=== PATIENT | male | born 1990 | race Caucasian/White ===

== ENCOUNTER 2017-11-22 12:06 | Emergency (ER) | payer OTHER ==
[2017-11-22] MEDS ORDERED: Albuterol/Ipratropium 3.0-0.5 MG/3 ML Neb Soln NEB ONE (12:24)
[2017-11-22 13:09] LABS: CHLORIDE,CL 107 mmol/L (98-110); SODIUM,NA 139 mmol/L (136-146)
[2017-11-22] MEDS ORDERED: Levofloxacin 500 MG Tab PO ONE (14:41)
--- NOTE | 2017-11-22 14:58 | CR ---
EXAM DATE: 11/22/17 PATIENT'S AGE: 27 Patient: NURY ARGUELLO Facility: [place], [place] Site . Site : 1990 Study: XRay Chest [id number]/27/2017 1:21:47 PM Ordering Physician: Doctor Ivey Final Report: INDICATION: Cough TECHNIQUE: Chest 2 views COMPARISON: None FINDINGS: CARDIOVASCULATURE AND MEDIASTINUM: Heart size and vasculature are normal in caliber and appearance. LUNGS AND PLEURAL SPACES: Infiltrate is present. The basilar segment of the right upper lobe. Remainder of the lungs and pleural spaces are clear. BONES AND SOFT TISSUES: No significant findings. IMPRESSION: Right upper lobe pneumonia. Dictated by Yoel Rodriguez MD @ 11/22/2017 1:41:52 PM Dictated by: Yoel Rodriguez MD @ 11/22/2017 13:42:00 (Electronic Signature) Report Signed by Proxy. [email or web address]
--- NOTE | 2017-11-22 15:09 | EDM.PDOC ---
ED HPI GENERAL MEDICAL PROBLEM - General Chief Complaint: Respiratory Problem Stated Complaint: COUGH Time Seen by Provider: 11/22/17 13:06 Source of Information: Reports: Patient History Limitations: Reports: No Limitations - History of Present Illness INITIAL COMMENTS - FREE TEXT/NARRATIVE: History of present illness: [27-year-old male comes in complaining of shortness of breath. Patient indicates he thinks has pneumonia. Patient has had a history of pneumonia and indicates it feels the same way.] Review of systems: As per history of present illness and below otherwise all systems reviewed and negative. Past medical history: As per history of present illness and as reviewed below otherwise noncontributory. Surgical history: As per history of present illness and as reviewed below otherwise noncontributory. Social history: No reported history of drug or alcohol abuse. Family history: As per history of present illness and as reviewed below otherwise noncontributory. Physical exam: HEENT: Atraumatic, normocephalic, pupils reactive, negative for conjunctival pallor or scleral icterus, mucous membranes moist, throat clear, neck supple, nontender, trachea midline. Lungs: Coarse breath sounds in bilateral upper apices otherwise breath sounds equal bilaterally, chest nontender. Heart: S1S2, regular, negative for clicks, rubs, or JVD. Abdomen: Soft, nondistended, nontender. Negative for masses or hepatosplenomegaly. Negative for costovertebral tenderness. Pelvis: Stable nontender. Genitourinary: Deferred. Rectal: Deferred. Extremities: Atraumatic, negative for cords or calf pain. Neurovascular unremarkable. Neuro: Awake, alert, oriented. Cranial nerves II through XII unremarkable. Cerebellum unremarkable. Motor and sensory unremarkable throughout. Exam nonfocal. Diagnostics: [CBC, CMP, chest x-ray] Therapeutics: [DuraNeb, Levaquin] Impression: [Right upper lobe pneumonia] Plan: [Levaquin, Medrol Dosepak] Definitive disposition and diagnosis as appropriate pending reevaluation and review of above. joint Pain Score (Numeric/FACES): 3 - Related Data Allergies Allergy/AdvReac Type Severity Reaction Status Date / Time No Known Allergies Allergy Verified 11/22/17 12:18 Home Meds: Home Meds Albuterol Sulfate [Proair Hfa] 2 puff IH Q6HR #1 hfa.aer.ad 11/22/17 [Rx] Inhaler, Assist Devices [Space Chamber Plus] 1 each ASDIRECTED #1 spacer [Rx] Levofloxacin [Levaquin] 500 mg PO Q24H 7 Days #7 tablet 11/22/17 [Rx] methylPREDNISolone [Medrol] 4 mg PO DAILY #21 tab.ds.pk 11/22/17 [Rx] Past Medical History - Past Health History Medical/Surgical History: Denies Medical/Surgical History - Infectious Disease History Infectious Disease History: Reports: Chicken Pox Social & Family History - Family History Family Medical History: Noncontributory - Tobacco Use Smoking Status *Q: Never Smoker - Caffeine Use Caffeine Use: Reports: Tea - Recreational Drug Use Recreational Drug Use: No ED ROS GENERAL - Review of Systems Review Of Systems: See Below (See history of present illness) ED EXAM, GENERAL - Physical Exam Exam: See Below (See history of present illness) Course - Vital Signs Last Recorded V/S: Last Vital Signs Temp 37.1 C 11/22/17 12:15 Pulse 76 11/22/17 12:15 Resp 18 11/22/17 12:15 BP 129/75 11/22/17 12:15 Pulse Ox 95 11/22/17 12:15 - Orders/Labs/Meds Orders: Active Orders 24 hr Category Date Time Status RT Aerosol Therapy [RC] ASDIRECTED Care 11/22/17 12:24 Active Labs: Laboratory Tests 11/22/17 11/22/17 Range/Units 12:34 12:34 WBC 7.01 (4.0-11.0) K/uL RBC 5.01 (4.50-5.90) M/uL Hgb 14.7 (13.0-17.0) g/dL Hct 43.0 (38.0-50.0) % MCV 85.8 (80.0-98.0) fL MCH 29.3 (27.0-32.0) pg MCHC 34.2 (31.0-37.0) g/dL RDW Std Deviation 42.3 (28.0-62.0) fl RDW Coeff of Maggi 14 (11.0-15.0) % Plt Count 223 (150-400) K/uL MPV 9.60 (7.40-12.00) fL Neut % (Auto) 60.0 (48.0-80.0) % Lymph % (Auto) 27.4 (16.0-40.0) % Beadle % (Auto) 10.7 (0.0-15.0) % Eos % (Auto) 1.6 (0.0-7.0) % Baso % (Auto) 0.3 (0.0-1.5) % Neut # (Auto) 4.2 (1.4-5.7) K/uL Lymph # (Auto) 1.9 (0.6-2.4) K/uL Beadle # (Auto) 0.8 (0.0-0.8) K/uL Eos # (Auto) 0.1 (0.0-0.7) K/uL Baso # (Auto) 0.0 (0.0-0.1) K/uL Nucleated RBC % 0.0 /100WBC Nucleated RBCs # 0 K/uL Sodium 139 (136-146) mmol/L Potassium 4.1 (3.5-5.1) mmol/L Chloride 107 (98-110) mmol/L Carbon Dioxide 22 (21-31) mmol/L BUN 15 (6.0-23.0) mg/dL Creatinine 1.2 (0.6-1.5) mg/dL Est Cr Clr Drug Dosing 92.47 mL/min Estimated GFR (MDRD) > 60.0 ml/min Glucose 97 (60-110) mg/dL Calcium 10.0 (8.8-10.8) mg/dL Total Bilirubin 0.4 (0.1-1.5) mg/dL AST 29 (5-40) IU/L ALT 26 (8-54) IU/L Alkaline Phosphatase 73 (40-150) Total Protein 7.7 (6.0-8.0) g/dL Albumin 4.1 (3.5-5.0) g/dL Globulin 3.6 H (2.0-3.5) g/dL Albumin/Globulin Ratio 1.1 L (1.3-2.8) Meds: Medications Discontinued Medications Generic Name Dose Route Start Last Admin Trade Name Freq PRN Reason Stop Dose Admin Albuterol/Ipratropium 3 ml 11/22/17 12:24 11/22/17 12:29 Duoneb 3.0-0.5 Mg/3 Ml NEB 12/27/17 12:25 3 ml ONETIME ONE Administration Levofloxacin 500 mg 11/22/17 14:41 Levaquin PO 11/22/17 14:42 ONETIME ONE Departure - Departure Time of Disposition: 15:09 Disposition: Home, Self-Care 01 Condition: Good Clinical Impression: Pneumonia - Discharge Information Prescriptions: Albuterol Sulfate [Proair Hfa] 2 puff IH Q6HR #1 hfa.aer.ad Inhaler, Assist Devices [Space Chamber Plus] 1 each MC ASDIRECTED #1 spacer Levofloxacin [Levaquin] 500 mg PO Q24H 7 Days #7 tablet methylPREDNISolone [Medrol] 4 mg PO DAILY #21 tab.ds.pk Instructions: Community-Acquired Pneumonia, Adult, [id number] Referrals: PCP,None [Primary Care Provider] - Additional Instructions: The following information is given to patients seen in the emergency department who are being discharged to home. This information is to outline your options for follow-up care. We provide all patients seen in our emergency department with a follow-up referral. The need for follow-up, as well as the timing and circumstances, are variable depending upon the specifics of your emergency department visit. If you don't have a primary care physician on staff, we will provide you with a referral. We always advise you to contact your personal physician following an emergency department visit to inform them of the circumstance of the visit and for follow-up with them and/or the need for any referrals to a consulting specialist. The emergency department will also refer you to a specialist when appropriate. This referral assures that you have the opportunity for follow-up care with a specialist. All of these measure are taken in an effort to provide you with optimal care, which includes your follow-up. Under all circumstances we always encourage you to contact your private physician who remains a resource for coordinating your care. When calling for follow-up care, please make the office aware that this follow-up is from your recent emergency room visit. If for any reason you are refused follow-up, please contact the [facility] Emergency Department at and asked to speak to the emergency department charge nurse. Take medication as directed Follow-up with primary care provider in 3-5 days Return to ED as needed as discussed - My Orders Last 24 Hours: My Active Orders 12/27/17 12:24 RT Aerosol Therapy [RC] ASDIRECTED - Assessment/Plan Last 24 Hours: My Active Orders 11/22/17 12:24 RT Aerosol Therapy [RC] ASDIRECTED
== END 2017-11-22 15:19 | disposition home or self-care (01) ==
LOC: MW.ED 12:06
DX: J18.9 Pneumonia, unspecified organism (principal); Z79.899 Other long term (current) drug therapy
CPT/HCPCS: 36415; 71020; 80053; 85025; 94640; 99285; A9270; 99283